=== PATIENT | male | born 1980 | race African-American/Black ===

== ENCOUNTER 2024-09-16 08:04 | Emergency (ER) | payer MEDICAID, OTHER ==
[~2024-09-16] VITALS: Ht 172.7 cm; Wt 72.8 kg
[2024-09-16 09:00] VITALS: BP 98/57; PULSE 58; RESP 18; O2SAT 98
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
[2024-09-16] MEDS: ACETAMINOPHEN 500 MG TAB or CAP PO ONE (09:07)
[2024-09-16] MEDS: LIDOCAINE 1% HCL (LOCAL ANESTH.) INJ 20ML MDV IJ ONE (09:08)
[2024-09-16] MEDS: cefTRIAXone SOD 1,000 MG VL IM ONE (09:08)
[2024-09-16] MEDS ORDERED: IBUP-1454 PO (09:09)
[2024-09-16] MEDS ORDERED: AZIT500T66 PO (09:09)
[2024-09-16 09:28] VITALS: TEMP 99.8
== END 2024-09-16 09:29 | disposition home or self-care (01) ==
LOC: ER 08:04
DX: J03.90 Acute tonsillitis, unspecified (principal); F17.210 Nicotine dependence, cigarettes, uncomplicated
CPT/HCPCS: 96372; 99283; J0696; J2003

== ENCOUNTER 2024-09-30 18:20 | Emergency (ER) | payer MEDICAID ==
[~2024-09-30] VITALS: Ht 175.3 cm; Wt 77.2 kg
[~2024-09-30 18:20] MED LIST: AZIT500T66 PO; IBUP-1454 PO
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
[2024-09-30] MEDS: KETOROLAC TROMETH 60MG/2ML VIAL IM ONE (20:10)
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
[2024-09-30] MEDS ORDERED: ACET500T58 PO (21:01)
[2024-09-30] MEDS ORDERED: IBUP-1455 PO (21:01)
[2024-09-30 21:46] VITALS: BP 114/68; PULSE 54; RESP 16; TEMP 98.1; O2SAT 100
== END 2024-09-30 21:55 | disposition home or self-care (01) ==
LOC: EDBD 18:20 → ER 18:27
DX: S16.1XXA Strain of muscle, fascia and tendon at neck level, initial encounter (principal); S39.012A Strain of muscle, fascia and tendon of lower back, initial encounter; S29.012A Strain of muscle and tendon of back wall of thorax, initial encounter; V43.52XA Car driver injured in collision with other type car in traffic accident, initial encounter; Y93.I9 Activity, other involving external motion; Y92.488 Other paved roadways as the place of occurrence of the external cause; Y99.8 Other external cause status
CPT/HCPCS: 72040; 72070; 72100; 96372; 99284; J1885